=== PATIENT | female | born 1985 | race Caucasian/White ===

== ENCOUNTER 2016-10-12 19:18 | Emergency (ER) | payer BC ==
[~2016-10-12] VITALS: Ht 167.6 cm; Wt 59.0 kg
[~2016-10-12 19:18] MED LIST: BC PILL
[2016-10-12] MEDS ORDERED: MORPHINE SULFATE 2 MG/1 ML DISP.SYRIN IV ONE (19:45)
[2016-10-12] MEDS ORDERED: IV NORMAL SALINE 1000 ML BAG IV ONE (19:45)
[2016-10-12] MEDS ORDERED: ONDANSETRON 4 MG/2 ML VIAL IV ONE (19:45)
[2016-10-12] MEDS ORDERED: MORPHINE SULFATE 2 MG/1 ML DISP.SYRIN ONE (19:57)
[2016-10-12] MEDS ORDERED: ONDANSETRON 4 MG/2 ML VIAL ONE (19:57)
[2016-10-12 20:06] LABS: CALCIUM 8.5 mg/dL (8.5-10.1); CREATININE 0.9 mg/dL (0.6-1.3); POTASSIUM 3.3 mmol/L (3.5-5.1)
[2016-10-12 20:08] LABS: BASOPHILS # (AUTO) 0.1 K/uL (0.0-8.0); BASOPHILS % (AUTO) 0.6 % (0.0-2.0); EOSINOPHILS # (AUTO) 0.2 K/uL (0.0-0.7); EOSINOPHILS % (AUTO) 2.5 % (0.0-7.0); HEMATOCRIT 39.6 % (31.2-41.9); LYMPHOCYTES % (AUTO) 46.5 % (20.5-51.5); MEAN CORPUSCULAR HEMOGLOBIN 29.3 uug (24.7-32.8); MEAN CORPUSCULAR HGB CONC 35 g/dL (32.3-35.6); MEAN CORPUSCULAR VOLUME 82.9 fL (75.5-95.3); MONOCYTES # (AUTO) 0.6 K/uL (2.0-10.0); MONOCYTES % (AUTO) 6.4 % (0.0-11.0); NEUTROPHILS # (AUTO) 3.8 K/uL (1.8-8.9); PLATELET COUNT (AUTO) 254 K/uL (179-408); RED BLOOD CELL COUNT(AUTO) 4.78 MIL/uL (3.63-4.92); RED CELL DISTRIBUTION WIDTH 11.6 % (12.3-17.7); WHITE BLOOD COUNT (AUTO) 8.7 K/uL (3.8-11.8)
[2016-10-12 20:12] LABS: ALBUMIN 3.7 g/dL (3.4-5.0); BILIRUBIN,DIRECT 0.1 mg/dL (0.0-0.2); BILIRUBIN,TOTAL 0.3 mg/dL (0.2-1.0); TOTAL PROTEIN, SERUM 7.3 g/dL (6.4-8.2)
[2016-10-12] MEDS ORDERED: LIDOCAINE VISCUS 2% 15 ML UDC ONE ×2 (20:35)
[2016-10-12] MEDS ORDERED: DICYCLOMINE HCL 10 MG/5 ML UDC LIQ ONE (20:35)
[2016-10-12] MEDS ORDERED: DICYCLOMINE HCL 10 MG/5 ML UDC LIQ PO ONE (20:45)
[2016-10-12] MEDS ORDERED: LIDOCAINE VISCUS 2% 15 ML UDC MM ONE (20:45)
[2016-10-12] MEDS ORDERED: MAG HYDROX/AL HYDROX/SIMETH 30 ML LIQUID UDC PO ONE (20:45)
[2016-10-12] MEDS ORDERED: MAG HYDROX/AL HYDROX/SIMETH 30 ML LIQUID UDC ONE (20:54)
--- NOTE | 2016-10-12 21:18 | NUR ---
Patient discharged to home in stable conditon. Written and verbal after care instructions given. Patient verbalizes understanding of instructions. Ambulated from ER with stable gait. Driven home by family member. All belongings with patient.
[2016-10-12 21:19] VITALS: BP 121/74
== END 2016-10-12 21:20 | disposition home or self-care (01) ==
LOC: ER 19:18
DX: K29.70 Gastritis, unspecified, without bleeding (principal); Z88.0 Allergy status to penicillin; Z88.2 Allergy status to sulfonamides
CPT/HCPCS: 36415; 83690; 84703; 85025; A4663; J2270; J2405; J7030

== ENCOUNTER 2017-06-04 01:48 | Emergency (ER) | payer BC ==
[~2017-06-04] VITALS: Ht 167.6 cm; Wt 65.8 kg
[2017-06-04] MEDS ORDERED: ONDANSETRON 4 MG/2 ML VIAL IV ONE (02:00)
[2017-06-04] MEDS ORDERED: HYDROMORPHONE 1 MG/1 ML DISP.SYRIN IV ONE ×2 (02:00→02:45)
[2017-06-04] MEDS ORDERED: IV NORMAL SALINE 1000 ML BAG IV ONE ×2 (02:00)
[2017-06-04] MEDS ORDERED: KETOROLAC TROMETHAMINE 30 MG INJ IVP ONE (02:00)
[2017-06-04 02:13] LABS: BASOPHILS # (AUTO) 0.4 K/uL (0.0-8.0); BASOPHILS % (AUTO) 3.3 % (0.0-2.0); EOSINOPHILS % (AUTO) 0.4 % (0.0-7.0); LYMPHOCYTES # (AUTO) 1.3 K/UL (0.8-4.8); LYMPHOCYTES % (AUTO) 11.4 % (20.5-51.5); MEAN CORPUSCULAR HEMOGLOBIN 28.6 UUG (27.0-31.0); MEAN CORPUSCULAR HGB CONC 34 g/dL (32.0-37.0); MEAN CORPUSCULAR VOLUME 84.1 FL (81.0-99.0); MONOCYTES # (AUTO) 0.4 K/UL (0.1-1.30); MONOCYTES % (AUTO) 3.5 % (0.0-11.0); NEUTROPHILS % (AUTO) 81.4 % (38.5-71.5); PLATELET COUNT (AUTO) 285 K/UL (150-450); RED BLOOD CELL COUNT(AUTO) 5.23 MIL/UL (4.2-5.4); WHITE BLOOD COUNT (AUTO) 11.1 K/UL (4.0-11.2)
[2017-06-04] MEDS ORDERED: KETOROLAC TROMETHAMINE 30 MG INJ ONE (02:15)
[2017-06-04] MEDS ORDERED: ONDANSETRON 4 MG/2 ML VIAL ONE ×2 (02:15→02:48)
[2017-06-04] MEDS ORDERED: HYDROMORPHONE 4 MG/1 ML DISP.SYRIN ONE ×2 (02:16→03:07)
[2017-06-04 02:23] LABS: BILIRUBIN,DIRECT 0.1 mg/dL (0.0-0.2); BILIRUBIN,TOTAL 0.6 mg/dL (0.2-1.0); CREATININE 0.9 mg/dL (0.6-1.3); POTASSIUM 3.4 mmol/L (3.5-5.1); TOTAL PROTEIN, SERUM 7.6 g/dL (6.4-8.2)
[2017-06-04] MEDS ORDERED: ONDANSETRON IV *ER 4 MG/2 ML VIAL IV ONE (02:30)
[2017-06-04 02:47] LABS: *BILIRUBIN,URIN NEGATIVE (NEGATIVE); *BLOOD, URINE 1+ (NEGATIVE); *CLARITY,URINE CLEAR (CLEAR); *COLOR,URINE YELLOW (YELLOW); *KETONES,URINE TRACE (NEGATIVE); *PROTEIN,URINE NEGATIVE (NEGATIVE); LEUKOCYTE ESTERASE ,URINE NEGATIVE (NEGATIVE); NITRITE, URINE NEGATIVE (NEGATIVE); UGLUCOSE NEGATIVE (NEGATIVE)
[2017-06-04 02:48] LABS: *URINE HCG, QUAL NEGATIVE (NEGATIVE)
[2017-06-04 02:56] LABS: BACTERIA,URINE NONE SEEN /HPF (NONE SEEN); SQUAMOUS EPITHELIAL CELL,UR MODERATE /HPF (NONE SEEN); WBC,URINE 0-3 /HPF (0-3)
--- NOTE | 2017-06-04 03:39 | NUR ---
Patient discharged to home in stable conditon. Written and verbal after care instructions given. Patient verbalizes understanding of instructions.
== END 2017-06-04 03:40 | disposition home or self-care (01) ==
LOC: ER 01:52
DX: K80.20 Calculus of gallbladder without cholecystitis without obstruction (principal); R10.11 Right upper quadrant pain; R10.12 Left upper quadrant pain; Z88.0 Allergy status to penicillin; Z88.2 Allergy status to sulfonamides; R11.2 Nausea with vomiting, unspecified; Z90.49 Acquired absence of other specified parts of digestive tract
CPT/HCPCS: 36415; 71010; 83690; 84703; 85025; 93005; A4663; J1170; J1885; J2405; J7030

== ENCOUNTER 2017-08-23 21:05 | Emergency (ER) | payer BC ==
[~2017-08-23] VITALS: Ht 167.6 cm; Wt 61.2 kg
[2017-08-23] MEDS ORDERED: ONDANSETRON 4 MG/2 ML VIAL ONE (21:23)
[2017-08-23] MEDS ORDERED: HYDROMORPHONE 2 MG/1 ML DISP.SYRIN ONE (21:23)
[2017-08-23] MEDS ORDERED: IV NORMAL SALINE 1000 ML BAG IV ONE ×2 (21:30→22:15)
[2017-08-23] MEDS ORDERED: ONDANSETRON 4 MG/2 ML VIAL IV ONE (21:30)
[2017-08-23] MEDS ORDERED: HYDROMORPHONE 1 MG/1 ML DISP.SYRIN IV ONE (21:30)
[2017-08-23 21:35] LABS: BASOPHILS # (AUTO) 0.1 K/uL (0.0-8.0); BASOPHILS % (AUTO) 0.6 % (0.0-2.0); EOSINOPHILS # (AUTO) 0.1 K/uL (0.0-0.7); EOSINOPHILS % (AUTO) 1.2 % (0.0-7.0); HEMATOCRIT 36.1 % (31.2-41.9); HEMOGLOBIN 12.8 g/dL (10.9-14.3); LYMPHOCYTES % (AUTO) 32.9 % (20.5-51.5); MEAN CORPUSCULAR HEMOGLOBIN 29.8 uug (24.7-32.8); MEAN CORPUSCULAR HGB CONC 35 g/dL (32.3-35.6); MONOCYTES # (AUTO) 0.7 K/uL (2.0-10.0); MONOCYTES % (AUTO) 7.5 % (0.0-11.0); NEUTROPHILS # (AUTO) 5.3 K/uL (1.8-8.9); NEUTROPHILS % (AUTO) 57.8 % (38.5-71.5); PLATELET COUNT (AUTO) 223 K/uL (179-408); WHITE BLOOD COUNT (AUTO) 9.1 K/uL (3.8-11.8)
[2017-08-23] MEDS ORDERED: METOCLOPRAMIDE HCL 10 MG/2 ML VIAL ONE (21:38)
[2017-08-23] MEDS ORDERED: METOCLOPRAMIDE HCL 10 MG/2 ML VIAL IV ONE (21:45)
[2017-08-23 21:48] LABS: BILIRUBIN,DIRECT 0.1 mg/dL (0.0-0.2); BILIRUBIN,TOTAL 0.5 mg/dL (0.2-1.0); CREATININE 0.7 mg/dL (0.6-1.3); TOTAL PROTEIN, SERUM 6.9 g/dL (6.4-8.2)
[2017-08-23 21:49] LABS: POTASSIUM 2.9 mmol/L (3.5-5.1)
[2017-08-23] MEDS ORDERED: POTASSIUM CHLORIDE 20 MEQ TAB.PRT.SR ONE (22:12)
[2017-08-23] MEDS ORDERED: POTASSIUM CHLORIDE 20 MEQ TAB.PRT.SR PO ONE (22:15)
--- NOTE | 2017-08-23 22:24 | NUR ---
patient in bed, nausea improving. will continue to monitor
--- NOTE | 2017-08-23 22:51 | NUR ---
Patient discharged to home in stable conditon. Written and verbal after care instructions given. Patient verbalizes understanding of instructions. Ambulated from ER with stable gait. Driven home by significant other. Peripheral IV removed prior to discharage.
[2017-08-23 22:52] VITALS: BP 127/78
== END 2017-08-23 22:53 | disposition home or self-care (01) ==
LOC: ER 21:06
DX: R10.11 Right upper quadrant pain (principal); E87.6 Hypokalemia; Z88.0 Allergy status to penicillin; Z88.2 Allergy status to sulfonamides; Z90.49 Acquired absence of other specified parts of digestive tract
CPT/HCPCS: 36415; 83690; 84703; 85025; A4663; J1170; J2405; J2765; J7030